=== PATIENT | male | born 2000 | race Caucasian/White ===

== ENCOUNTER → 2021-01-04 11:05 | Outpatient (CLI) | payer OTHER, MEDICAID, SELFPAY ==
--- NOTE | 2021-01-04 11:08 | DI.RAD.S_ITS ---
PROCEDURE: XR SHOULDER LT MIN 2V INDICATIONS: left shoulder pain, limited ROM TECHNIQUE: 3 views of the shoulder were acquired. COMPARISON: None. FINDINGS: Bones: No fractures or dislocations. No suspicious bony lesions. Visualized ribs appear intact. Soft tissues: No suspicious soft tissue calcifications. IMPRESSION: No acute bony abnormality. Dictated by: Iván Shahid M.D. on 01/04/2021 at 10:36 Approved by: Iván Shahid M.D. on 01/04/2021 at 10:37
--- NOTE | 2021-01-04 11:08 | DI.RAD.S_ITS ---
PROCEDURE: XR CLAVICLE LT INDICATIONS: left shoulder pain, limited ROM TECHNIQUE: 2 views of the clavicle were acquired. COMPARISON: None. FINDINGS: Bones: No fractures or dislocations. No suspicious bony lesions. Soft tissues: No suspicious soft tissue calcifications. IMPRESSION: No acute bony abnormality. Dictated by: Iván Shahid M.D. on 01/04/2021 at 10:35 Approved by: Iván Shahid M.D. on 01/04/2021 at 10:36
== END ==
PROVIDERS: Referring Provider Physician Assistant; Visit Provider Physician Assistant
DX: M25.519 Pain in unspecified shoulder (principal)
CPT/HCPCS: 73000; 73030

== ENCOUNTER → 2023-10-07 12:34 | Outpatient (CLI) | payer OTHER, MEDICAID, SELFPAY ==
[2023-10-07 23:13] LABS: Occult Blood 1 Negative (Negative); Sample 1 Time 1407
== END ==
PROVIDERS: Visit Provider Nurse Practitioner Family
DX: R19.7 Diarrhea, unspecified (principal)
CPT/HCPCS: 82270; 87329